=== PATIENT | female | born 1945 | race Caucasian/White ===

== ENCOUNTER 2019-10-01 15:17 | Inpatient (IN) | payer MEDICARE, BC ==
[~2019-10-01] VITALS: Ht 170.2 cm; Wt 64.4 kg
--- NOTE | 2019-10-01 15:50 | NUR ---
ULTRASOUND DONE AT BEDSIDE.
--- NOTE | 2019-10-01 15:50 | NUR ---
PATIENT BEING SEEN BY DOCTOR RAMIREZ.
--- NOTE | 2019-10-01 15:55 | NUR ---
CT OF THE HEAD PENDING TO BE DONE
[2019-10-01 16:10] LABS: BASOPHILS % (AUTO) 0.6 % (0.0-2.0); EOSINOPHILS % (AUTO) 0.2 % (0.0-7.0); HEMATOCRIT 41.4 % (31.2-41.9); HEMOGLOBIN 13.7 g/dL (10.9-14.3); LYMPHOCYTES # (AUTO) 1.8 K/uL (20.0-40.0); LYMPHOCYTES % (AUTO) 33.1 % (20.5-51.5); MEAN CORPUSCULAR HEMOGLOBIN 31.2 uug (24.7-32.8); MEAN CORPUSCULAR HGB CONC 33 g/dL (32.3-35.6); MONOCYTES # (AUTO) 0.4 K/uL (2.0-10.0); MONOCYTES % (AUTO) 7.7 % (0.0-11.0); NEUTROPHILS # (AUTO) 3.2 K/uL (1.8-8.9); NEUTROPHILS % (AUTO) 58.4 % (38.5-71.5); PLATELET COUNT (AUTO) 236 K/uL (179-408); WHITE BLOOD COUNT (AUTO) 5.4 K/uL (3.8-11.8)
[2019-10-01 16:18] LABS: CREATININE 0.7 mg/dL (0.6-1.3); POTASSIUM 4.2 mmol/L (3.5-5.1)
--- NOTE | 2019-10-01 16:39 | NUR ---
PATIENT BACK FROM CT SCAN.
--- NOTE | 2019-10-01 17:30 | NUR ---
SPOKE TO DOCTOR SHERMAN FOR ADMISSION. PATIENT CAN BE ADMITTED.
[2019-10-01] MEDS ORDERED: ASPIRIN 81 MG TAB.CHEW PO ONE (17:45)
[2019-10-01] MEDS ORDERED: ASPIRIN 81 MG TAB.CHEW ONE (17:48)
--- NOTE | 2019-10-01 18:33 | NUR ---
CALLED FOR REPORT. NURSE TO CALL BACK FOR REPORT.
--- NOTE | 2019-10-01 18:40 | NUR ---
REPORT GIVEN TO HOMER ERYN
--- NOTE | 2019-10-01 19:15 | NUR ---
Received patient from ER via wheelchair. A/O x 4. Ambulatory. No distress noted. Denies pain. longterm assessment done. Skin intact. TELE SR at 66. Safety initiated. Call light within reach. Will continue to monitor.
[2019-10-01] MEDS ORDERED: hydrALAZINE HCL 25 MG TABLET PO PRN (20:00)
[2019-10-01] MEDS ORDERED: MAGNESIUM HYDROXIDE 30 ML LIQUID UDC PO PRN (20:00)
[2019-10-01] MEDS ORDERED: ONDANSETRON 4 MG/2 ML VIAL IV PRN (20:00)
[2019-10-01] MEDS ORDERED: TEMAZEPAM 15 MG CAPSULE PO PRN (20:00)
[2019-10-01] MEDS ORDERED: ACETAMINOPHEN 325 MG TABLET PO PRN (20:00)
[2019-10-01 20:30] VITALS: BP 128/75
[2019-10-02] VITALS: BP 126/66
[2019-10-02] MEDS: BLOOD SUGAR DIAGNOSTIC 1 EACH STRIP VI SCH ×4 (00:57→18:17)
--- NOTE | 2019-10-02 05:19 | NUR ---
Patient slept t/o shift. at bedside. Vital signs stable TELE SR at 62. Medications given as ordered. Safety and comfort measures maintained t/o shift. All needs met.
[2019-10-02] MEDS: PANTOPRAZOLE SODIUM 40 MG TABLET.DR PO SCH (07:00)
[2019-10-02 07:07] LABS: BASOPHILS % (AUTO) 0.6 % (0.0-2.0); EOSINOPHILS % (AUTO) 0.6 % (0.0-7.0); HEMOGLOBIN 13.4 g/dL (10.9-14.3); LYMPHOCYTES # (AUTO) 1.3 K/uL (20.0-40.0); LYMPHOCYTES % (AUTO) 36.8 % (20.5-51.5); MEAN CORPUSCULAR HEMOGLOBIN 31.4 uug (24.7-32.8); MEAN CORPUSCULAR HGB CONC 34 g/dL (32.3-35.6); MEAN CORPUSCULAR VOLUME 93.6 fL (75.5-95.3); MONOCYTES # (AUTO) 0.3 K/uL (2.0-10.0); MONOCYTES % (AUTO) 9.4 % (0.0-11.0); NEUTROPHILS # (AUTO) 1.9 K/uL (1.8-8.9); NEUTROPHILS % (AUTO) 52.6 % (38.5-71.5); PLATELET COUNT (AUTO) 233 K/uL (179-408); RED BLOOD CELL COUNT(AUTO) 4.28 MIL/uL (3.63-4.92); WHITE BLOOD COUNT (AUTO) 3.6 K/uL (3.8-11.8)
[2019-10-02 07:27] LABS: ALANINE AMINOTRANSFERASE 20 U/L (14-59); ALKALINE PHOSPHATASE 67 U/L (50-136); ASPARTATE AMINOTRANSFERASE 18 U/L (15-37); BILIRUBIN,TOTAL 0.5 mg/dL (0.2-1.0); CARBON DIOXIDE 32 mmol/L (21-32); CHLORIDE 109 mmol/L (98-107); CREATININE 0.5 mg/dL (0.6-1.3); GLUCOSE 89 mg/dL (74-106); PHOSPHOROUS 3.8 mg/dL (2.5-4.9); POTASSIUM 4.3 mmol/L (3.5-5.1); TOTAL PROTEIN, SERUM 6.6 g/dL (6.4-8.2); UREA NITROGEN, BLOOD 12 mg/dL (7-18)
[2019-10-02 07:29] LABS: THYROID STIMULATING HORMONE 2.189 mIU/mL (0.358-3.740)
[2019-10-02] MEDS: ASPIRIN EC 325 MG TABLET.DR PO SCH (09:24)
[2019-10-02 11:28] VITALS: BP 138/75
[2019-10-02] MEDS ORDERED: SWABABLE VALVE TRANSFER SET EA MC ONE (12:06)
[2019-10-02] MEDS ORDERED: IOHEXOL 350 100 ML INFUS..BTL ONE (12:06)
[2019-10-02] MEDS ORDERED: IV NORMAL SALINE 250 ML IV ONE (12:06)
[2019-10-02] MEDS: IV 1/2NS 1000 ML 1,000 ML IV PRN (13:21)
--- NOTE | 2019-10-02 14:34 | NUR ---
Systems Protection Technician Consultation: SW met with his patient today. Patient was seated in the chair in her assigned hospital room. Patient is a 74 year old female, alert, oriented x 4, pleasant and receptive to meeting with this SW. SW completed a psychosocial assessment with the patient. Patient lives in a house in [place], with her domestic partner/"" Trae Hirsch. Patient reported that she and Trae have been in a relationship for 6 years, and are very supportive of one another. Patient does not have any children from her previous marriage, however Trae has 3 children from his previous marriages. 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 Patient reports that she was at work yesterday, sitting at her desk, when she suddenly noticed "a curtain closing" over her left eye. Patient reported that she could only see little bit of light from the bottom of her eye. Patient reported that this lasted a very short period of time and that she called her PCP (Evelyn) to let him know about the episode. Patient stated that her PCP suggested for her to go to a local emergency room. Patient stated that she had an appointment with her pain doctor at 2:30pm yesterday afternoon, and decided to go to her pain doctor before going to the emergency room. Patient stated that her pain doctor's office is located in the office building down the street from [facility], and therefore came to [facility] emergency room after her appointment with the pain doctor. Patient reported not having any other symptoms or weakness. Patient reported not having any repeat episodes of vision impairment since yesterday's episode. Patient expressed being in agreement with [facility]'s physicians treatment plans and their recommendations for length of stay at the hospital, stating "I don't want to garcia home without doing everything the doctors are recommending". SW explored patient's emotional/mental well-being prior to this hospitalization and administered the PHQ-9. Patient scored a 0, stating that she is very content with her life, she is happy with her relationship, and she has alot of support from her many friends. Patient's appearance is appropriate and she presents well-groomed. Affect, mood, and behavior are WNL, and patient maintained appropriate eye contact and smiled throughout this interview. Speech and thought process were clear and coherent. No psychosocial concerns were identified, and therefore no SS interventions are needed at this time. However, social worker school will be available to the patient, if needed. Case Management to assist patient with discharge planning.
[2019-10-02 15:22] VITALS: BP 144/72
--- NOTE | 2019-10-02 18:46 | NUR ---
Patient AAOx4. No s/s of acute distress. Denies pain or any discomfort. No SOB noted. Stroke prevention education provided. IV on R FA intact and patent with IVF running as ordered. All needs attended. Call light within reach. Will endorse care accordingly.
--- NOTE | 2019-10-02 18:50 | NUR ---
Pt refused DVT pumps
--- NOTE | 2019-10-02 19:30 | NUR ---
RECEIVED PT AWAKE, ALERT AND ORIENTEDX4. PT IN NO ACUTE DISTRESS.FIANCE AT BEDSIDE. SAFETY AND COMFORT PROVIDED. IV INTACT. WILL CONTINUE TO MONITOR.
--- NOTE | 2019-10-02 19:59 | NUR ---
Called [facility] for the Cta Result.The radiologist said he will call us back and fax if the result is done.
[2019-10-02 20:04] VITALS: BP 133/79
--- NOTE | 2019-10-02 22:04 | NUR ---
RESULT OF CTA OF THE CORONARY ARTERIES SENT TO AISHWARYA CALDERON NP., DR INTERIOR DESIGN PRINCIPAL AWARE. NO NEW ORDERS PER PT IN NO ACUTE DISTRESS. WILL CONTINUE TO MONITOR.
--- NOTE | 2019-10-02 22:05 | NUR ---
SENT DR. HURT THE RESULT OF CTA OF CORONARY ARTERIES. AWARE.
[2019-10-03 00:36] VITALS: BP 108/72
[2019-10-03 04:00] VITALS: BP 113/71
[2019-10-03] MEDS: IV 1/2NS 1000 ML 1,000 ML IV PRN (05:56)
[2019-10-03] MEDS: PANTOPRAZOLE SODIUM 40 MG TABLET.DR PO SCH (06:03)
--- NOTE | 2019-10-03 06:03 | NUR ---
PT SLEPT INTERMITTENTLY. PT IN NO ACUTE DISTRESS. IV INTACT. PRESCRIBED MEDICATION GIVEN AND PT TOLERATED IT WELL. PT REFUSED HER PROTONIX.SAFETY AND COMFORT PROVIDED. WILL ENDORSE TO INCOMING NURSE FOR CONTINUITY OF CARE.
[2019-10-03 06:57] LABS: BASOPHILS % (AUTO) 0.7 % (0.0-2.0); EOSINOPHILS # (AUTO) 0.1 K/uL (0.0-0.7); EOSINOPHILS % (AUTO) 1.2 % (0.0-7.0); HEMATOCRIT 42.6 % (31.2-41.9); HEMOGLOBIN 14.4 g/dL (10.9-14.3); LYMPHOCYTES # (AUTO) 1.4 K/uL (20.0-40.0); LYMPHOCYTES % (AUTO) 29.4 % (20.5-51.5); MEAN CORPUSCULAR HEMOGLOBIN 31.8 uug (24.7-32.8); MEAN CORPUSCULAR HGB CONC 34 g/dL (32.3-35.6); MEAN CORPUSCULAR VOLUME 94.4 fL (75.5-95.3); MONOCYTES # (AUTO) 0.4 K/uL (2.0-10.0); MONOCYTES % (AUTO) 9.4 % (0.0-11.0); NEUTROPHILS # (AUTO) 2.8 K/uL (1.8-8.9); NEUTROPHILS % (AUTO) 59.3 % (38.5-71.5); PLATELET COUNT (AUTO) 253 K/uL (179-408); RED BLOOD CELL COUNT(AUTO) 4.51 MIL/uL (3.63-4.92); WHITE BLOOD COUNT (AUTO) 4.8 K/uL (3.8-11.8)
--- NOTE | 2019-10-03 07:30 | NUR ---
Received patient in bed, awake, alert and verbally responsive. No signs of distress noted. No SOB. No complain of Pain or discomfort. Denies Chest Pain. Kept comfortable. Will continue to monitor.
[2019-10-03 07:39] LABS: CREATININE 0.7 mg/dL (0.6-1.3); PHOSPHOROUS 4.3 mg/dL (2.5-4.9); POTASSIUM 4.1 mmol/L (3.5-5.1)
[2019-10-03] MEDS: ASPIRIN EC 325 MG TABLET.DR PO SCH (08:29)
[2019-10-03 11:02] VITALS: BP 129/77
--- NOTE | 2019-10-03 15:30 | NUR ---
Patient is awake, alert and verbally responsive. No signs of distress noted. No SOB. Afebrile. No complain of Pain or discomfort. Patient with Order to be discharge Home today. Discharge Instructions given to patient and verbalized Understanding. Removed Wrist band and IV site. All belongings was sent and signed by patient. Accompanied patient and RP to private car in stable condition.
== END 2019-10-03 15:30 | disposition home or self-care (01) | DRG 69 ==
LOC: ER 15:20 → TELE3 19:03 → MEDSURG3 10-03 10:15
PROVIDERS: ADMIT Internal Medicine; ATTEND Internal Medicine
DX: G45.9 Transient cerebral ischemic attack, unspecified (principal); G45.3 Amaurosis fugax; I31.3 Pericardial effusion (noninflammatory); E78.5 Hyperlipidemia, unspecified; G43.109 Migraine with aura, not intractable, without status migrainosus; I70.0 Atherosclerosis of aorta; M19.90 Unspecified osteoarthritis, unspecified site; Z90.49 Acquired absence of other specified parts of digestive tract; G89.29 Other chronic pain; G31.9 Degenerative disease of nervous system, unspecified; R79.89 Other specified abnormal findings of blood chemistry; Z98.1 Arthrodesis status; M54.10 Radiculopathy, site unspecified; M41.84 Other forms of scoliosis, thoracic region
CPT/HCPCS: 36415; 70030-TC; 70450; 70496; 71045; 83735; 84100; 84443; 85025; 85651; 85730; 93005; 93307; 93880; A4663; G0378; J3490; J7050; Q9967